=== PATIENT | female | born 2000 ===

== ENCOUNTER → 2023-08-23 08:55 | Outpatient (BNVA) | payer OTHER, SELFPAY | PROVIDERS: PCP Nurse Practitioner; Visit Provider Internal Medicine ==

== ENCOUNTER 2023-08-23 08:56 | Outpatient (AMB) | payer OTHER, SELFPAY ==
--- NOTE | 2023-08-23 08:51 | A.OFFVIS_ITS ---
Vital Signs 08/23/23 08:53 Height 5 ft 2 in Weight 135 lb BMI 24.7 BP 112/69 Blood Pressure Location Lt brachial Position Sitting Respiration 14 Pulse 76 Pulse Source Pulse Oximeter Pulse Oximetry (%) 98 Oxygen Delivery Method Room Air Intake Visit Reasons: LEFT KNEE PAIN Allergies No Known Allergies Allergy (Verified 08/23/23 08:54) Medication List - Last Reconciled 08/23/23 by Alena Maddox LPN fenofibrate 43 mg PO DAILY HPI HPI LEFT KNEE PAIN: Details: 23-year-old female who presents today to the office for an evaluation of left knee pain. She reports left knee pain. The pain started when she was standing from the sitting position and twisted her leg. She developed some swelling that was painful. She states that her pain has mildly improved since the beginning. She has difficulty standing from the sitting position. It affects her ADLs. She denies any bruising of the skin. She has been using knee brace. She has not done any formal PT. Weather changes worsens the pain. She has mild pain with walking. Review of Systems Const All systems reviewed & are unremarkable except as noted in HPI and below Physical Exam Vital Signs: Last Vital Signs Pulse 76 08/23/23 08:53 Resp 14 08/23/23 08:53 BP 112/69 08/23/23 08:53 Pulse Ox 98 08/23/23 08:53 Oxygen Delivery Method Room Air 08/23/23 08:53 BMI result Body Mass Index 24.7 General: Appears afebrile. Alert and oriented. Mood and affect appropriate. Follows and participates in conversation appropriately. Respiratory effort is unlabored. Able to transition from sit to stand unassisted. Ambulates with bilaterally normal heel strike and toe off. There is a tenderness overlying the medial meniscus on the left knee. Ultrasound exam showed a slight disruption of the infrapatellar MCL. Results Reviewed Results Reviewed: Ultrasound exam the office showed a slight disruption of the MCL. ? Assessment & Plan Assessment & Plan (1) Left knee pain: Code(s): M25.562 - Pain in left knee Category: Medical (2) Acute medial meniscus tear: Code(s): S83.249A - Other tear of medial meniscus, current injury, unspecified knee, initial encounter Category: Medical Plan A referral was provided to physical therapy for left knee pain for 6-8 weeks. The patient will receive a call to schedule an appointment. A script was also provided to the patient for physical therapy. Prescribed gabapentin 100 mg at night for pain management. Advised a combination of acetaminophen, gabapentin, icing, and knee bracing along with topical diclofenac cream. If the pain continues to persists, we will order an MRI scan of the knee for further evaluation. Follow up as needed. Scribed for Dr. Starkey by Husam Guillen, electromedical service engineer, on 08/19/2023. I, Dr. Starkey, have personally reviewed and agree with the information entered by the scribe. Orders: Orders PT Evaluation and Treatment Today M25.562 - Pain in left knee, S83.249A - Other tear of medial meniscus, current injury, unspecified knee, initial encounter Medications: New gabapentin 100 mg PO BEDTIME 30 caps 0RF diclofenac sodium 1% (Arthritis Pain (diclofenac)) apply to single knee, ankle, foot; for foot includes sole/toes/top of foot 4 grams topical QID 100 grams 0RF Coding Level of Care Code New Pt Level 4 (31220) Diagnoses Left knee pain M25.562 Acute medial meniscus tear S83.249A
[2023-08-23 08:53] VITALS: BP 112/69; PULSE 76; RESP 14; O2SAT 98; BMI 24.7
== END 2023-08-23 09:22 | disposition home or self-care (01) ==
PROVIDERS: PCP Nurse Practitioner; Visit Provider Internal Medicine
DX: M25.562 Pain in left knee (principal); S83.249A Other tear of medial meniscus, current injury, unspecified knee, initial encounter
CPT/HCPCS: 99204